=== PATIENT | female | born 1965 | race Two or more races ===

== ENCOUNTER 2024-08-13 12:20 | Outpatient (CLI) | payer OTHER ==
[2024-08-13 13:44] LABS: CREATININE SERUM 0.8 mg/dL (0.55-1.02)
== END 2024-08-13 12:28 | disposition home or self-care (01) ==
LOC: LAB 12:20
PROVIDERS: ATTEND Radiology Diagnostic Radiology
DX: R41.3 Other amnesia (principal); G93.0 Cerebral cysts

== ENCOUNTER 2024-08-14 09:55 | Outpatient (CLI) | payer OTHER | END 2024-08-14 10:09 | disposition home or self-care (01) | LOC: MRI 09:55 | PROVIDERS: ATTEND Neuromusculoskeletal Medicine & OMM | DX: R41.3 Other amnesia (principal); G93.0 Cerebral cysts; I95.1 Orthostatic hypotension | CPT/HCPCS: 70553 ==